=== PATIENT | female | born 1985 | race Caucasian/White ===

== ENCOUNTER 2018-09-04 11:25 | Emergency (ER) | payer OTHER ==
--- NOTE | 2018-09-04 12:34 | OBHP ---
Datetime: 09/04/2018 12:31 IP Adm Impression: , intrauterine ; No Active Labor IP Admit Plan: Discharge home Admit Comment, IP Provider: A/P: IUP at 33+6 wks r/o ROM - stable - primagravida - negative pooling, negative nitrazine - irregular ctx, will give IV bolus then D/C FHR - Baseline A Provider: 130 Pool Provider: Negative Nitrazine Provider: Negative EGA AdmitDate IP: 33.6 Vital Signs Provider: Reviewed; Within Normal Limits IP Chief Complaint: Suspected ruptured membranes NICHD Variability Prov Fetus A: Moderate 6-25bpm NICHD Accel Fetus A IP Provider: [id number] FHR Category Provider Fetus A: Category I NICHD Decel Fetus A IP Provider: None Dilatation, Provider: c Effacement, Provider: l Station, Provider: p
[2018-09-04 12:36] VITALS: BMI 28.0
[2018-09-04] MEDS ORDERED: Lactated Ringer's 1,000 ML IV ONE (12:36)
[2018-09-04 12:56] LABS: SQUAMOUS EPITHIAL 2 /hpf (0-5); URINE BACTERIA FEW (<OCC); URINE BILIRUBIN NEGATIVE (NEGATIVE); URINE BLOOD NEGATIVE (NEGATIVE); URINE CLARITY Clear (Clear); URINE COLOR Straw (YELLOW); URINE GLUCOSE (UA) NORMAL (Normal); URINE LEUKOCYTE ESTERASE NEG Leu/uL (Negative); URINE PROTEIN NEGATIVE (NEGATIVE); URINE UROBILINOGEN NORMAL mg/dL (0.2-1.0)
[2018-09-04 17:25] VITALS: BP 123/74; PULSE 64
== END 2018-09-04 13:25 | disposition home or self-care (01) ==
LOC: C.EROB 11:25
DX: O47.03 False labor before 37 completed weeks of gestation, third trimester (principal); Z3A.33 33 weeks gestation of pregnancy